=== PATIENT | female | born 1985 | race African-American/Black ===

== ENCOUNTER 2017-03-21 20:08 | Emergency (ER) | payer SELFPAY ==
[~2017-03-21] VITALS: Ht 162.6 cm; Wt 59.1 kg
[2017-03-22 02:22] LABS: APPEARANCE,URINE CLOUDY (CLEAR); BILIRUBIN,URINE NEGATIVE (NEGATIVE); GLUCOSE, URINE (UA) NEGATIVE (NEGATIVE); KETONES,URINE NEGATIVE (NEGATIVE); LEUKOCYTE ESTERASE ,URINE SMALL (NEGATIVE); NITRATE,URINE POSITIVE (NEGATIVE); OCCULT BLOOD,URINE MODERATE (NEGATIVE); PROTEIN,URINE NEGATIVE (NEGATIVE)
[2017-03-22 02:27] LABS: AMPHET/METH SCREEN,URINE POSITIVE (NEGATIVE); BARBITURATE SCREEN, URINE NEGATIVE (NEGATIVE); BENZODIAZEPINES SCREEN,URINE NEGATIVE (NEGATIVE); CANNABINOID SCREEN,URINE POSITIVE (NEGATIVE); COCAINE SCREEN,URINE POSITIVE (NEGATIVE); METHADONE SCREEN, URINE NEGATIVE (NEGATIVE); OPIATE SCREEN,URINE NEGATIVE (NEGATIVE); PHENCYCLIDINE SCREEN,URINE NEGATIVE (NEGATIVE)
[2017-03-22 02:30] VITALS: BP 114/69
[2017-03-22 02:54] LABS: BACTERIA,URINE Moderate /HPF (None Seen); SQUAMOUS EPITHELIAL CELL,UR Few /LPF (None Seen)
[2017-03-22 03:02] LABS: HCG,QUAL RESULT NEGATIVE (NEGATIVE)
== END 2017-03-22 03:20 | disposition home or self-care (01) ==
LOC: EMS 20:10
DX: N39.0 Urinary tract infection, site not specified (principal); R20.2 Paresthesia of skin; F15.10 Other stimulant abuse, uncomplicated
CPT/HCPCS: 87086; 99284

== ENCOUNTER 2017-03-22 05:41 | Emergency (ER) | payer SELFPAY ==
[~2017-03-22] VITALS: Ht 167.6 cm; Wt 65.9 kg
[2017-03-22 10:47] VITALS: BP 135/87
== END 2017-03-22 11:02 | disposition left against medical advice (07) ==
LOC: EMS 05:42
DX: R20.2 Paresthesia of skin (principal); F15.10 Other stimulant abuse, uncomplicated; F17.200 Nicotine dependence, unspecified, uncomplicated
CPT/HCPCS: 99281; 99406